=== PATIENT | male | born 1970 | race Caucasian/White ===

== ENCOUNTER 2024-12-17 09:31 | Emergency (ER) | payer MEDICARE, OTHER, SELFPAY ==
--- NOTE | 2024-12-17 09:45 | DI.RAD.S_ITS ---
PROCEDURE: XR KNEE LT 3V INDICATIONS: L knee pain, no recent trauma TECHNIQUE: 3 views of the knee were acquired. COMPARISON: None. FINDINGS: Bones: No fractures or dislocations. No suspicious bony lesions. Soft tissues: Moderate joint effusion. No suspicious soft tissue calcifications. IMPRESSION: No acute bony abnormality. Moderate joint effusion. Internal derangement not excluded. Dictated by: Michael Garza M.D. on 12/17/2024 at 10:03 Approved by: Michael Garza M.D. on 12/17/2024 at 10:03
[2024-12-17 09:55] VITALS: BP 112/75; PULSE 85; RESP 16; TEMP 36.7; O2SAT 96; BMI 32.1
--- NOTE | 2024-12-17 09:58 | ED_ITS ---
HPI - General Adult General Chief complaint: Extremity Injury, Lower Stated complaint: Knee Pain Time Seen by Provider: 12/17/24 09:33 Source: patient, RN notes reviewed and old records reviewed Mode of arrival: Family Vehicle Limitations: no limitations History of Present Illness HPI narrative: 54-year-old male with a history of chronic back pain and recurrent left knee swelling. Patient presents with complaint of pain and swelling of his left knee. States he has been camping this week denies any new trauma or injuries. States he was had this problem intermittently. States they have never had to drain his knee, he was never had any infections but it was quite uncomfortable. Patient denies any fevers. He denies any warmth or erythema. States it was quite painful to try to move this morning when he woke up my notes he took some oxycodone which was helpful and has not increased his movements somewhat. He denies numbness tingling or weakness. He does not appreciate any warmth, he does not appreciate any erythema, no other skin changes. Patient states feels very similar to his prior episodes. He was also had an increase in his low back pain. Patient states no chest pain or shortness of breath, no nausea or vomiting no other GI or urinary symptoms. No numbness tingling or weakness otherwise. Patient lives in the [facility] and states he has followed with primary care for this in the past. Patient did take some acetaminophen and ibuprofen early this morning. Denies allergies to medications. States he was had prior laminectomy in his back. Denies any prior surgeries or interventions to his knee. Does not want had quite a bit of traumatic repetitive injury in the past when he was in the . Related Data Previous Rx's ?Medication ?Instructions ?Recorded meloxicam 7.5 mg tablet 7.5 mg PO BID PRN pain #10 t abs 12/17/24 Allergies Allergy/AdvReac Type Severity Reaction Status Date / Time No Known Drug Allergies Allergy Verified 12/17/24 10:05 Review of Systems Review of Systems ROS Unobtainable: All systems reviewed & are unremarkable except as noted in HPI and below Patient History Social History Smoking Status: Current every day smoker Exam Narrative Exam Narrative: GENERAL: Alert and oriented x three, male in mild distress HEENT: Head normocephalic, atraumatic, EOMI, pupils reactive, face symmetric, moist mucous membranes NECK: Supple, full range of motion CARDIOVASCULAR: Regular rate and rhythm without murmurs, rubs or gallops. RESPIRATORY: Breath sounds equal bilaterally, no wheezes rales or rhonchi. ABDOMEN: Soft, nontender. Normoactive bowel sounds all 4 quadrants. No guarding or rebound, rigidity, no mass : No CVA tenderness EXTREMITIES: Decreased range of motion but present passively, negative joint laxity testing, no pain with the anterior posterior drawer, compression test or valgus varus testing. Patient does have ballotable effusion of the left knee. There was no warmth, no erythema or other skin changes noted. Patient is nontender to palpation. No clubbing or edema. Neurovascularly intact. 2+ dorsalis pedis. No swelling of the calf, foot or ankle. No other rash or skin changes noted of the rest of the leg. Otherwise normal range of motion of all other extremities. NEUROLOGICAL: Cranial nerves II through XII grossly intact. Moving all extremities SKIN: Warm, dry, no petechiae, no rashes or lesions. Initial Vital Signs Initial Vital Signs: Vital Signs Temperature 98.1 F 12/17/24 09:55 Pulse Rate 85 12/17/24 09:55 Respiratory Rate 16 12/17/24 09:55 Blood Pressure 112/75 12/17/24 09:55 Pulse Oximetry 96 12/17/24 09:55 Oxygen Delivery Method Room Air 12/17/24 09:55 Course Orders Ordered: Discontinued Medications Ketorolac Tromethamine (Ketorolac 30 Mg/Ml Vial) 30 mg IM NOW ONE Stop: 12/17/24 09:46 Last Admin: 12/17/24 10:05 Dose: 30 mg Documented By: DILLON Vital Signs Vital signs: Vital Signs - 8 hr 12/17/24 09:55 Temperature 98.1 F Pulse Rate 85 Respiratory Rate 16 Blood Pressure 112/75 Pulse Oximetry 96 Oxygen Delivery Method Room Air Medical Decision Making [facility] Narrative Medical decision making narrative: 54-year-old male with a acute on chronic left knee pain and swelling. Patient states feels very similar to prior episodes has recently been camping although he denies any new trauma. Patient did note he took some of his home oxycodone prior to arrival which has been helpful. X-ray L knee: No acute bony abnormality. Moderate joint effusion. Internal derangement not excluded. Patient received Toradol. Patient placed in a knee immobilizer, crutches were offered. Plan for patient to follow up no red flag changes at this time concerning for septic joint appears to be acute on chronic fusion that reoccurs I suspect with his recent camping activity irritated his knee. He notes some increased back discomfort as well. Patient feels much more comfortable after Toradol and was able to ambulate without assistance to the bathroom. Discharge Plan Departure Patient Disposition: Home Clinical Impression: Effusion, left knee Instructions: DI for Knee Effusion Activity Restrictions/Additional Instructions: Follow up with your physician for recheck, call to set up an appointment. You can continue with the acetaminophen up to a 1000 mg every 6 hours. You can also take meloxicam 1 tablet every 12 hours as needed for pain. Did not take other NSAIDs with the medications such as ibuprofen, Aleve or naproxen. If inadequate for your pain you can take your oxycodone 1-2 tablets every 6 hours as needed. This medication can make you sleepy do not drive, perform hazardous activities or make any major decisions while taking it. This medication will make you constipated please take a stool softener once to twice daily until stools are soft and regular. Use knee immobilizer as needed. Splint Care: Keep splint clean and dry. Elevated affected body part to decrease swelling. OK to use ice pack on the affected body part. Use for 15-20 minutes each time, for 5-6x per day. If you develop worsening pain, numbness, tingling, discoloration of the affected body part, loosen the splint by loosening the TIANA wrap, and either see your doctor for an urgent re-assessment, or return to the Emergency Department. Return to the Emergency Department for any new or worsening symptoms. Prescriptions: New meloxicam 7.5 mg tablet 7.5 mg PO BID PRN (Reason: pain) Qty: 10 0RF Stand Alone Forms: Patient Portal/API
[2024-12-17] MEDS: KETOROLAC 30 MG/ML VIAL IM (10:05)
[2024-12-17 10:44] VITALS: BP 103/64; PULSE 80; O2SAT 96
--- NOTE | 2024-12-17 11:07 | PC.NURSE ---
left knee immobilizer.
== END 2024-12-17 11:11 | disposition home or self-care (01) ==
PROVIDERS: Emergency Provider Emergency Medicine
DX: M25.462 Effusion, left knee (principal)
CPT/HCPCS: 73562; 96372; 99283; J1885